=== PATIENT | male | born 1955 | race Caucasian/White ===

== ENCOUNTER → 2024-10-26 11:00 | Outpatient (REF) | payer MEDICARE, SELFPAY | LOC: RAD 11:00 | PROVIDERS: ATTENDING PHYSICIAN Physical Medicine & Rehabilitation; FAMILY PHYSICIAN Internal Medicine | DX: M47.816 Spondylosis without myelopathy or radiculopathy, lumbar region (principal) | CPT/HCPCS: 72100 ==

== ENCOUNTER → 2025-07-22 11:56 | Outpatient (REF) | payer MEDICARE, SELFPAY | LOC: HWRCS 11:56 | PROVIDERS: ATTENDING PHYSICIAN Internal Medicine | DX: R07.9 Chest pain, unspecified (principal) | CPT/HCPCS: 78452; 93017; A9500 ==